=== PATIENT | female | born 1955 | race Caucasian/White ===

== ENCOUNTER 2025-03-20 09:32 | Emergency (ER) | payer MEDICARE, MEDICAID ==
[2025-03-20] MEDS: Iopamidol 755 Mg/ML 100 ML Bottle IVPUSH ONE (09:42)
[2025-03-20 10:27] LABS: A/G RATIO 1.4; ALANINE AMINOTRANSFERASE,ALT 46 U/L (14-59); ASPARTATE AMNIOTRANSFERASE,AST 58 U/L (15-37); BILIRUBIN TOTAL 1.5 mg/dL (0.2-1.0); BLOOD UREA NITROGEN,BUN 39 mg/dL (7-18); CARBON DIOXIDE,CO2 26 mmol/L (21-32); CHLORIDE,CL 100 mmol/L (98-107); CREATININE 1.07 mg/dL (0.55-1.02); GLUCOSE RANDOM 134 mg/dL (70-99); POTASSIUM,K 4.0 mmol/L (3.5-5.1); PROTEIN TOTAL,TP 6.0 g/dL (6.4-8.2); SODIUM,NA 139 mmol/L (136-145)
[2025-03-20 10:30] LABS: D-DIMER QUANTITATIVE 848.0 ng/mL (0-400)
[2025-03-20 10:32] LABS: LACTIC ACID 2.7 mmol/L (0.4-2.0)
[2025-03-20 10:33] LABS: ESTIMATED GFR 57 mL/min (>=60)
[2025-03-20 10:34] LABS: PLATELET COUNT,PLT 41 10^3/uL (150-450); RED BLOOD CELL COUNT 2.66 10^6/uL (4.2-5.4)
[2025-03-20 10:39] LABS: INR 1.0 (0.9-1.2); PTT,PARTIAL THROMBOPLSTIN TIME 20.9 SEC (22.0-34.0)
[2025-03-20 10:41] LABS: B-TYPE NATRIURETIC PEPTIDE,BNP 31 pg/ml (0-100)
[2025-03-20 10:59] LABS: WHITE BLOOD CELL COUNT,WBC 167.1 10^3/uL (5.0-10.0)
[2025-03-20 11:36] LABS: BAND PERCENT MAN 2 %; LYMPHOCYTES % ATYPICAL MANUAL 2 %; LYMPHOCYTES PERCENT MAN 6 % (20-50); SEG NEUTROPHILS PERCENT MAN 56 % (42-75)
[2025-03-20 11:38] LABS: MONOCYTES PERCENT MAN 34 % (2-8); NRBC MANUAL 4 /100WBC
[2025-03-20] MEDS: Levofloxacin/Dextrose 5%-Water 500 MG in Premix Bag 1 BAG IV ONE (12:22)
== END 2025-03-20 16:30 ==
LOC: DL.ED 09:32
DX: J18.9 Pneumonia, unspecified organism (principal); R09.02 Hypoxemia; C34.90 Malignant neoplasm of unspecified part of unspecified bronchus or lung; Z88.0 Allergy status to penicillin; Z79.890 Hormone replacement therapy; Z79.899 Other long term (current) drug therapy
CPT/HCPCS: 36415; 70450; 71045; 71275; 80053; 83605; 83690; 83735; 83880; 84145; 84484; 85025; 85379; 85610; 85730; 87040; 93005; 93010; 94640; 96365; 99285; 99285-25; A9270-GY; J1956; J3490; Q9967